=== PATIENT | male | born 1980 | race Hispanic/Latino ===

== ENCOUNTER 2020-04-28 17:28 | Emergency (ER) | payer SELFPAY ==
[~2020-04-28] VITALS: Ht 170.2 cm; Wt 104.3 kg
[2020-04-28] MEDS ORDERED: KETOROLAC TROMETHAMINE 30 MG/ML VIAL IV NR (17:47)
[2020-04-28] MEDS ORDERED: METHYLPREDNISOLONE SOD SUCC 125 MG/2ML VIAL IV ONE (18:00)
[2020-04-28] MEDS ORDERED: COLCHICINE 0.6 MG TAB PO NR (18:00)
[2020-04-28 18:21] LABS: BASOPHILS % 0.1 % (0.0-1.0); EOSINOPHILS # (AUTO) 0.2 (0.0-0.4); EOSINOPHILS % 3.3 % (0.0-6.0); HEMATOCRIT 42.9 % (38.2-49.6); HEMOGLOBIN 13.3 g/dL (14.0-18.0); LYMPHOCYTES # (AUTO) 2.2 (1.0-3.2); LYMPHOCYTES % 29.9 % (18.0-39.1); MEAN CORPUSCULAR HEMOGLOBIN 25.2 pg (28-32); MEAN CORPUSCULAR VOLUME 81.4 fL (81-99); MONOCYTES # (AUTO) 0.6 (0.2-0.8); MONOCYTES % 7.5 % (4.4-11.3); NEUTROPHILS # (AUTO) 4.4 (2.1-6.9); NEUTROPHILS % 58.9 % (38.7-80.0); PLATELET COUNT 290 x10e3/uL (140-360); RED BLOOD COUNT 5.27 x10e6/uL (4.3-5.7)
[2020-04-28 18:42] LABS: ALBUMIN 3.8 g/dL (3.5-5.0); ALBUMIN/GLOBULIN RATIO 0.8 (0.8-2.0); ANION GAP 16.1 mmol/L (8-16); CREATININE, SERUM 1.34 mg/dL (0.72-1.25); POTASSIUM 4.1 mmol/L (3.5-5.1)
[2020-04-28] MEDS ORDERED: COLCHICINE0.6 M1 PO (19:17)
[2020-04-28 21:08] VITALS: BP 149/84
== END 2020-04-28 21:14 | disposition home or self-care (01) ==
LOC: ER 17:47
DX: M25.561 Pain in right knee (principal); M10.9 Gout, unspecified
CPT/HCPCS: 36415; 73630; 80053; 84550; 85025; 99284; J1885; J2930

== ENCOUNTER 2022-05-06 17:31 | Emergency (ER) | payer OTHER ==
[~2022-05-06] VITALS: Ht 175.3 cm; Wt 104.3 kg
[~2022-05-06 17:31] MED LIST: COLCHICINE0.6 M1 PO
[2022-05-06] MEDS ORDERED: COLCRYS0.6 MG PO (17:43)
[2022-05-06] MEDS ORDERED: IBUPROFEN600 MG PO (17:43)
[2022-05-06] MEDS ORDERED: HYDROCODONE/APAP 5MG-325MG TAB PO ONE (17:45)
== END 2022-05-06 17:48 | disposition home or self-care (01) ==
LOC: ER 17:33
DX: M10.9 Gout, unspecified (principal)
CPT/HCPCS: 99283